=== PATIENT | male | born 1985 | race Caucasian/White ===

== ENCOUNTER 2025-02-13 17:13 | Emergency (ER) | payer MEDICAID, SELFPAY ==
[2025-02-13 17:17] VITALS: BP 148/91; PULSE 85; RESP 18; TEMP 36.7; O2SAT 98; BMI 25.4
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
[2025-02-13] MEDS: CLINDAMYCIN 150 MG CAPSULE 300 MG PO (18:46)
== END 2025-02-13 18:55 | disposition home or self-care (01) ==
PROVIDERS: Emergency Provider Nurse Practitioner Family
DX: Z02.89 Encounter for other administrative examinations (principal); S91.331D Puncture wound without foreign body, right foot, subsequent encounter; W34.00XD Accidental discharge from unspecified firearms or gun, subsequent encounter
CPT/HCPCS: 99282; A9270